=== PATIENT | male | born 1995 | race American Indian/Alaskan Native ===

== ENCOUNTER 2016-12-22 06:17 | Emergency (ER) | payer SELFPAY ==
[2016-12-22] MEDS ORDERED: FUL-GLO OP ONE (08:26)
[2016-12-22] MEDS ORDERED: TETRACAINE 0.5% OU STA (08:26)
--- NOTE | 2016-12-22 09:43 | Emergency Department Report ---
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 PT states 2-3 weeks ago something got in his L eye. PT unsure what it is. PT states he can still feel something in his eye. PT states his eye hurts. PT tried to clean eye with otc eye wash but no improvement. PT states he has not been seen for this. PT not sure if his TDap is UTD. chief complaint: eye injury -: week(s) (2-3 weeks ago ) Onset Description: gradual Location: left eye Place: work If Injury: direct trauma (pt states something got in his eye ) Eye Symptoms: redness, pain, foreign body sensation, discharge (tearing ) Severity scale (0 -10): 7 If Pain, Quality: sharp Consistency: intermittent Context: trauma Associated Symptoms: none Treatments Prior to Arrival: irrigated eye - Related Data Patient Tetanus UTD: No Previous Rx's Medication Instructions Recorded Last Taken Type Cetirizine HCl [ZyrTEC] 10 mg PO DAILY #30 capsule 12/22/16 Unknown Rx Erythromycin [Erythromycin Ophth 1 cm OS QID 7 Days 12/22/16 Unknown Rx Oint] Ibuprofen [Motrin] 600 mg PO Q8H PRN #15 tablet 12/22/16 Unknown Rx Allergies Allergy/AdvReac Type Severity Reaction Status Date / Time loracarbef [From Lorabid] Allergy Rash Verified 10/06/13 15:35 ED Review of Systems ROS: Stated complaint: LT EYE REDNESS W/DISCOMFORT Other details as noted in HPI Comment: All other systems reviewed and negative Constitutional: denies: chills, fever Eyes: as per HPI, eye pain Gastrointestinal: denies: abdominal pain Musculoskeletal: denies: back pain Skin: denies: rash ED Past Medical Hx - Past Medical History Previous Medical History?: No - Surgical History Past Surgical History?: No - Social History Smoking Status: Current Every Day Smoker Substance Use Type: None - Medications Home Medications: Home Medications Medication Instructions Recorded Confirmed Last Taken Type Cetirizine HCl [ZyrTEC] 10 mg PO DAILY #30 capsule 12/22/16 Unknown Rx Erythromycin [Erythromycin Ophth 1 cm OS QID 7 Days 12/22/16 Unknown Rx Oint] Ibuprofen [Motrin] 600 mg PO Q8H PRN #15 tablet 12/22/16 Unknown Rx ED Physical Exam - General Limitations: No Limitations General appearance: alert, in no apparent distress - Head Head exam: Present: atraumatic, normocephalic, normal inspection - Eye Eye exam: Present: PERRL, EOMI, conjunctival injection (mild, L eye ), other (+ increased fluorcein uptake to L eye at the 3 oclock position on wood's lamp exam ). Absent: periorbital swelling, periorbital tenderness Pupils: Present: normal accommodation - Expanded Eye Exam Expanded Eyelids: Normal Inspection: Left Pupils: Regular, Round: Bilateral Sclera/Conjunctival: Injection: Left Visual acuity (R) = 20/: 40 Visual acuity (L) = 20/: 70 With correction: No IOP (L) in mmH IOP measured with: Tonopen - ENT ENT exam: Present: normal exam, normal external ear exam - Neck Neck exam: Present: normal inspection, full ROM - Respiratory Respiratory exam: Present: normal lung sounds bilaterally. Absent: respiratory distress - Cardiovascular Cardiovascular Exam: Present: regular rate, normal rhythm - Extremities Exam Extremities exam: Present: normal inspection, full ROM - Back Exam Back exam: Present: normal inspection, full ROM. Absent: tenderness, CVA tenderness (R), CVA tenderness (L) - Neurological Exam Neurological exam: Present: alert, oriented X3 - Psychiatric Psychiatric exam: Present: normal affect, normal mood - Skin Skin exam: Present: warm, dry, intact, normal color ED Course Vital Signs 12/22/16 12/22/16 12/22/16 06:31 08:20 11:46 Temperature 97.9 F 97.0 F L 98.5 F Pulse Rate 62 46 L 88 Respiratory 18 18 20 Rate Blood Pressure 106/69 Blood Pressure 120/77 133/78 [Left] O2 Sat by Pulse 100 100 98 Oximetry - Reevaluation(s) Reevaluation #1: 12/22/16 11:18 PT aware of abnormal PE findings and need to follow up. PT has no questions at this time. - Pulse Oximetry Interpretation Digit-Finger Initial Pulse Oximetry Readin Actions Taken: none ED Medical Decision Making - Differential Diagnosis fb, abrasion, conjunctivitis Critical Care Time: No Critical care attestation.: If time is entered above; I have spent that time in minutes in the direct care of this critically ill patient, excluding procedure time. ED Disposition Clinical Impression: Need for Tdap vaccination Corneal abrasion, left Qualifiers: Encounter type: initial encounter Qualified Code(s): S05.02XA - Injury of conjunctiva and corneal abrasion without foreign body, left eye, initial encounter Disposition: TO HOME OR SELFCARE Is pt being admited?: No Does the pt Need Aspirin: No Condition: Stable Instructions: Conjunctivitis (ED), Corneal Abrasion (ED) Additional Instructions: Follow up with an eye doctor in the next 3-5 days Return to the ED if you have trouble seeing out of your eye or worsening Prescriptions: Cetirizine HCl [ZyrTEC] 10 mg PO DAILY #30 capsule Erythromycin [Erythromycin Ophth Oint] 1 cm OS QID 7 Days Ibuprofen [Motrin] 600 mg PO Q8H PRN #15 tablet PRN Reason: Pain Referrals: PRIMARY CAREMD [Primary Care Provider] - 3-5 Days WINNIE NEWMAN MD [Staff Physician] - 3-5 Days JOSE NAYAK MD [Staff Physician] - 3-5 Days [facility] [Outside] - 3-5 Days Forms: Work/School Release Form(ED) Time of Disposition: 11:06
[2016-12-22] MEDS ORDERED: BOOSTRIX IM ONE (10:51)
[2016-12-22 11:48] VITALS: BP 133/78
== END 2016-12-22 11:37 | disposition home or self-care (01) ==
LOC: ED 06:17
DX: S05.02XA Injury of conjunctiva and corneal abrasion without foreign body, left eye, initial encounter (principal); F17.210 Nicotine dependence, cigarettes, uncomplicated; Z88.8 Allergy status to other drugs, medicaments and biological substances; X58.XXXA Exposure to other specified factors, initial encounter; Y93.89 Activity, other specified; Y92.89 Other specified places as the place of occurrence of the external cause; Y99.8 Other external cause status
CPT/HCPCS: 90471; 90715; 99283

== ENCOUNTER 2017-03-02 06:15 | Emergency (ER) | payer SELFPAY ==
[2017-03-02] MEDS ORDERED: TETRACAINE 0.5% OU ONE (10:19)
[2017-03-02] MEDS ORDERED: MOTRIN PO ONE (10:19)
[2017-03-02] MEDS ORDERED: FUL-GLO OP ONE (10:19)
--- NOTE | 2017-03-02 10:20 | Emergency Department Report ---
ED Eye Problem HPI - General Chief complaint: Eye Problems Stated complaint: EYE PAIN Time Seen by Provider: 03/02/17 09:16 Source: patient Mode of arrival: Ambulatory Limitations: No Limitations - History of Present Illness Initial comments: Here reports that he has left eye irritation that started Sunday notes in his right eye. Denies for contact. Denies any injury or trauma to her eye. Denies any foreign body gotten his eyes. He reports pain 10 out of 10 that feels burning in. Denies any loss of vision. Denies any medical problem and his tetanus vaccine is up-to-date which is less than 5 years. chief complaint: eye pain (burning ), eye redness Onset/Timin -: days(s) Onset Description: sudden, awoke with symptoms Location: both eyes Place: home If Injury: none Eye Symptoms: burning, redness, itching, discharge, photophobia Severity: severe Severity scale (0 -10): 7 If Pain, Quality: burning Consistency: intermittent Associated Symptoms: none Treatments Prior to Arrival: none - Related Data Patient Tetanus UTD: Yes Previous Rx's Medication Instructions Recorded Last Taken Type Cetirizine HCl [ZyrTEC] 10 mg PO DAILY #30 capsule 12/22/16 Unknown Rx Erythromycin [Erythromycin Ophth 1 cm OS QID 7 Days 12/22/16 Unknown Rx Oint] Gentamicin 0.3% Ophth Soln 2 drops OP Q4H #1 bottle 03/02/17 Unknown Rx Ibuprofen [Motrin 600 MG tab] 600 mg PO Q8H PRN #15 tablet 03/02/17 Unknown Rx Ketotifen Fumarate [Zaditor] 5 ml OP TID PRN #1 drops 03/02/17 Unknown Rx Allergies Allergy/AdvReac Type Severity Reaction Status Date / Time loracarbef [From Lorabid] Allergy Rash Verified 10/06/13 15:35 ED Review of Systems ROS: Stated complaint: EYE PAIN Other details as noted in HPI Comment: All other systems reviewed and negative Constitutional: no symptoms reported Eyes: eye pain (eye burning and redness), eye discharge. denies: vision change ENT: denies: ear pain, throat pain, congestion Respiratory: no symptoms reported Cardiovascular: denies: chest pain, palpitations, edema, syncope, paroxysmal nocturnal dyspnea Gastrointestinal: denies: abdominal pain, nausea, vomiting Musculoskeletal: denies: back pain, joint swelling, arthralgia, myalgia Skin: denies: rash Neurological: denies: headache, weakness, numbness, paresthesias, confusion, abnormal gait, vertigo ED Past Medical Hx - Past Medical History Previous Medical History?: No - Surgical History Past Surgical History?: No - Family History Family history: no significant - Social History Smoking Status: Current Every Day Smoker Substance Use Type: None - Medications Home Medications: Home Medications Medication Instructions Recorded Confirmed Last Taken Type Cetirizine HCl [ZyrTEC] 10 mg PO DAILY #30 capsule 12/22/16 Unknown Rx Erythromycin [Erythromycin Ophth 1 cm OS QID 7 Days 12/22/16 Unknown Rx Oint] Gentamicin 0.3% Ophth Soln 2 drops OP Q4H #1 bottle 03/02/17 Unknown Rx Ibuprofen [Motrin 600 MG tab] 600 mg PO Q8H PRN #15 tablet 03/02/17 Unknown Rx Ketotifen Fumarate [Zaditor] 5 ml OP TID PRN #1 drops 03/02/17 Unknown Rx ED Physical Exam - General Limitations: No Limitations General appearance: alert, in no apparent distress - Head Head exam: Present: atraumatic, normocephalic, normal inspection - Eye Eye exam: Present: PERRL, EOMI, conjunctival injection. Absent: normal appearance, scleral icterus, nystagmus, periorbital swelling, periorbital tenderness Pupils: Present: normal accommodation - Expanded Eye Exam Expanded Eyelids: Normal Inspection: Right (bilateral) Pupils: Regular, Round: Bilateral, Reactive: Bilateral Sclera/Conjunctival: Injection: Bilateral (erythema) Anterior chamber: Normal Inspection: Bilateral Posterior chamber: Normal Inspection: Bilateral Visual acuity (R) = 20/: 50 (20/50 both eyes) Visual acuity (L) = 20/: 50 With correction: No - ENT ENT exam: Present: normal exam, normal orophraynx, mucous membranes moist, TM's normal bilaterally, normal external ear exam - Neck Neck exam: Present: normal inspection, full ROM, other (C-spine tenderness). Absent: tenderness, meningismus, lymphadenopathy, thyromegaly - Respiratory Respiratory exam: Present: normal lung sounds bilaterally. Absent: respiratory distress, wheezes, chest wall tenderness, accessory muscle use - Cardiovascular Cardiovascular Exam: Present: regular rate, normal rhythm, normal heart sounds. Absent: systolic murmur, diastolic murmur - Extremities Exam Extremities exam: Present: normal inspection, full ROM, normal capillary refill. Absent: pedal edema, joint swelling, calf tenderness - Back Exam Back exam: Present: normal inspection, full ROM. Absent: tenderness, CVA tenderness (R), CVA tenderness (L), muscle spasm, paraspinal tenderness, vertebral tenderness, rash noted - Neurological Exam Neurological exam: Present: alert, oriented X3, normal gait, reflexes normal. Absent: motor sensory deficit - Psychiatric Psychiatric exam: Present: normal affect, normal mood - Skin Skin exam: Present: warm, dry, intact, normal color. Absent: rash ED Course Vital Signs 03/02/17 07:11 Temperature 97.8 F Pulse Rate 68 Respiratory 16 Rate Blood Pressure 109/76 O2 Sat by Pulse 100 Oximetry - Reevaluation(s) Reevaluation #1: 03/02/17 11:49 stable throughout ED stay. He received Motrin 800 mg by mouth in the emergency room for eye pain. See procedure note/intestine 03/02/17 11:49 - Procedure Description Procedures done: Bilateral eye procedure: Both eyes examined under Ho lamp, instill one drop of tetracaine eyedrop in both eyes followed by fluorescein stain and both eyes examined under Ho lamp. No corneal abrasion noted. Visual Leif acuity is 20/20 both eyes, OD and OS ED Medical Decision Making - Medical Decision Making ED course: Shoshana presented to the emergency room with irritation to both eyes that started in his left eye and now it is right eye. Physical findings for bilateral conjunctivitis. Both examined under Ho lamp and no corneal abrasion or corneal ulcer seen. Visual Acuity is 20/50 both eyes, OD and OS. Patient is given Motrin 800 mg by mouth and emergency room for eye irritation. I explained diagnosis and treatment plan to him and let him know that he will need to follow up with eye doctor in 3 days and if his condition worsened and he should come back to the emergency room. Patient discharged home with gentamicin ophthalmic drops, Zaditor gtt for itching and Motrin when necessary Critical care attestation.: If time is entered above; I have spent that time in minutes in the direct care of this critically ill patient, excluding procedure time. ED Disposition Clinical Impression: Irritation of both eyes Bilateral conjunctivitis Qualifiers: Conjunctivitis type: acute Acute conjunctivitis type: unspecified Qualified Code(s): H10.33 - Unspecified acute conjunctivitis, bilateral Disposition: DC-01 TO HOME OR SELFCARE Is pt being admited?: No Does the pt Need Aspirin: No Condition: Stable Instructions: Conjunctivitis (ED) Additional Instructions: Please follow up with manager of quality as instructed Take medication as prescribed Increase your fluid intake Practice good hand hygiene Prescriptions: Gentamicin 0.3% Ophth Soln 2 drops OP Q4H #1 bottle Ibuprofen [Motrin 600 MG tab] 600 mg PO Q8H PRN #15 tablet PRN Reason: Pain Ketotifen Fumarate [Zaditor] 5 ml OP TID PRN #1 drops PRN Reason: Allergy Symptoms Referrals: MEME MCDANIEL MD [Staff Physician] - 03/05/17 Forms: Work/School Release Form(ED)
[2017-03-02 12:28] VITALS: BP 109/59
== END 2017-03-02 12:28 | disposition home or self-care (01) ==
LOC: ED 06:15
DX: H10.9 Unspecified conjunctivitis (principal); F17.210 Nicotine dependence, cigarettes, uncomplicated; Z88.8 Allergy status to other drugs, medicaments and biological substances
CPT/HCPCS: 99283

== ENCOUNTER 2020-06-13 14:06 | Emergency (ER) | payer SELFPAY ==
[2020-06-13 14:13] VITALS: BP 109/64
--- NOTE | 2020-06-13 14:24 | Emergency Department Report ---
Chief Complaint: Urogenital-Male Stated Complaint: SEVERE GENITAL PAIN - HPI History of Present Illness: 25-year-old -[place] male presents to the emergency room reporting a 1- 1/2 days of penile painfulness. Patient reports he has had unprotected intercourse and the possible concern for STI. Patient states that his partner reports that she had like a yeast infection but has been drinking water and and that has improved. Patient denies any testicular pain denies abdominal pain denies any nausea no vomiting no diarrhea. Patient states that is painful when he urinates. - Exam Vital Signs: Vital Signs 06/13/20 14:08 Temperature 98.6 F Pulse Rate 76 Respiratory 18 Rate Blood Pressure 109/64 O2 Sat by Pulse 100 Oximetry Physical Exam: Alert and oriented x3 no acute distress nontoxic in appearance : Chaperoned by nurse Yannick: Circumcised penis mild discharge at the penis orifice no testicular pain or tenderness bilateral lymphadenopathy in the groin area Ambulatory without difficulties MSE screening note: Focused history and physical exam performed. Due to findings the following was ordered: 25-year-old -[place] male presents to the emergency room reporting a 1- 1/2 days of penile painfulness. Patient reports he has had unprotected intercourse and the possible concern for STI. Patient states that his partner reports that she had like a yeast infection but has been drinking water and and that has improved. Patient denies any testicular pain denies abdominal pain denies any nausea no vomiting no diarrhea. Patient states that is painful when he urinates. Referred patient to try taking ibuprofen or Tylenol and to follow-up at the health department urgent care [facility] for evaluation and treatment. ED Disposition for [facility] Disposition: MED SCREENING EXAM-LEFT Is pt being admited?: No Does the pt Need Aspirin: No Condition: Stable Additional Instructions: Recommend to follow-up at the health department or urgent care for STI evaluation and treatment. Need to be checked for HIV, gonorrhea chlamydia herpes hepatitis syphilis. You can take Tylenol or ibuprofen for pain management. Referrals: [facility] [Outside] - 3-5 Days [facility] [Outside] - 3-5 Days Clinical, medical concept [Other] - 3-5 Days
== END 2020-06-13 14:36 | disposition left against medical advice (07) ==
LOC: ED 14:06
DX: N50.89 Other specified disorders of the male genital organs (principal); Z53.21 Procedure and treatment not carried out due to patient leaving prior to being seen by health care provider

== ENCOUNTER 2021-11-09 09:24 | Emergency (ER) | payer SELFPAY ==
[2021-11-09 09:36] VITALS: BP 120/64
== END 2021-11-09 17:45 | disposition left against medical advice (07) ==
LOC: ED 09:24
DX: R22.1 Localized swelling, mass and lump, neck (principal); Z53.21 Procedure and treatment not carried out due to patient leaving prior to being seen by health care provider

== ENCOUNTER 2021-11-15 09:55 | Emergency (ER) | payer SELFPAY ==
[2021-11-15 10:38] VITALS: BP 107/62
--- NOTE | 2021-11-15 11:09 | XRay Report ---
CHEST 2 VIEWS INDICATION / CLINICAL INFORMATION: cough. COMPARISON: None available. FINDINGS: SUPPORT DEVICES: None. HEART / MEDIASTINUM: No significant abnormality. LUNGS / PLEURA: No significant pulmonary or pleural abnormality. No pneumothorax. ADDITIONAL FINDINGS: No significant additional findings. IMPRESSION: 1. No acute findings. Signer Name: Shelton Garcia DO Signed: 11/15/2021 11:05 AM Workstation Name: [id number]
--- NOTE | 2021-11-15 13:14 | Emergency Department Report ---
ED General Adult HPI - General Chief complaint: Upper Respiratory Infection Stated complaint: CANNOT SWALLOW Source: patient Mode of arrival: Ambulatory Limitations: No Limitations - History of Present Illness Initial comments: Patient is a 26-year-old -[place] male with no past medical history presents to the ED with complaint of acute onset persistent sore throat with swollen painful anterior right cervical lymph nodes for the last 2 weeks. Patient states that the symptoms are worse with any swallowing or speech. Patient denies traumatic injury, fever, chills, cough, sore throat, headache, chest pain or shortness of breath, nausea and vomiting, abdominal pain, neck pain or change in vision. MD Complaint: Sore throat -: week(s) (2) Location: mouth Radiation: non-radiation Severity scale (0 -10): 7 Quality: aching, sharp Consistency: constant Improves with: none Worsens with: eating Associated Symptoms: denies other symptoms. denies: confusion, chest pain, cough, diaphoresis, fever/chills, headaches, loss of appetite, malaise, nausea/vomiting, rash, seizure, shortness of breath, syncope, weakness Treatments Prior to Arrival: none - Related Data Previous Rx's Medication Instructions Recorded Last Taken Type Cetirizine HCl [ZyrTEC] 10 mg PO DAILY #30 capsule 12/22/16 Unknown Rx Erythromycin [Erythromycin Ophth 1 cm OS QID 7 Days tube 12/22/16 Unknown Rx Oint] Gentamicin 0.3% Ophth Soln 2 drops OP Q4H #1 bottle 03/02/17 Unknown Rx Ketotifen Fumarate [Zaditor] 5 ml OP TID PRN #1 drops 03/02/17 Unknown Rx Ibuprofen [Motrin 600 MG tab] 600 mg PO Q8H PRN #12 tablet 04/09/18 Unknown Rx Azithromycin [Zithromax Z-JARETH] 250 mg PO DAILY #6 tab 11/15/21 Unknown Rx Ibuprofen [Motrin 600 MG tab] 600 mg PO Q8H PRN #30 tablet 11/15/21 Unknown Rx Lidocaine Viscous 2% 10 ml PO Q6H PRN #120 ml 11/15/21 Unknown Rx predniSONE [Deltasone] 40 mg PO QDAY #10 tab 11/15/21 Unknown Rx Allergies Allergy/AdvReac Type Severity Reaction Status Date / Time loracarbef [From Lorabid] Allergy Intermediate Rash Verified 11/09/21 09:37 ED Review of Systems ROS: Stated complaint: CANNOT SWALLOW Other details as noted in HPI ED Past Medical Hx - Past Medical History Previous Medical History?: No - Surgical History Past Surgical History?: No - Social History Smoking Status: Never Smoker - Medications Home Medications: Home Medications Medication Instructions Recorded Confirmed Last Taken Type Cetirizine HCl [ZyrTEC] 10 mg PO DAILY #30 capsule 12/22/16 Unknown Rx Erythromycin [Erythromycin Ophth 1 cm OS QID 7 Days tube 12/22/16 Unknown Rx Oint] Gentamicin 0.3% Ophth Soln 2 drops OP Q4H #1 bottle 03/02/17 Unknown Rx Ketotifen Fumarate [Zaditor] 5 ml OP TID PRN #1 drops 03/02/17 Unknown Rx Ibuprofen [Motrin 600 MG tab] 600 mg PO Q8H PRN #12 tablet 04/09/18 Unknown Rx Azithromycin [Zithromax Z-JARETH] 250 mg PO DAILY #6 tab 11/15/21 Unknown Rx Ibuprofen [Motrin 600 MG tab] 600 mg PO Q8H PRN #30 tablet 11/15/21 Unknown Rx Lidocaine Viscous 2% 10 ml PO Q6H PRN #120 ml 11/15/21 Unknown Rx predniSONE [Deltasone] 40 mg PO QDAY #10 tab 11/15/21 Unknown Rx ED Physical Exam - General Limitations: No Limitations ED Course Vital Signs 11/15/21 11/15/21 10:35 12:29 Temperature 98.4 F Pulse Rate 63 Respiratory 17 17 Rate Blood Pressure 107/62 O2 Sat by Pulse 96 97 Oximetry ED Medical Decision Making - Medical Decision Making This is a 26-year-old -[place] male with no past medical history presents to the ED with complaint of acute onset persistent sore throat with swollen painful anterior right cervical lymph nodes for the last 2 weeks. Patient states that the symptoms are worse with any swallowing or speech. In the ED, patient is alert and oriented x3 and is not in any distress. Patient is hemodynamically stable. Patient will discharge home on medications based on the history and physical exam findings. Patient was discharged home and advised to follow-up with his primary care physician in 7 to 10 days for reevaluation or return to the ED immediately if symptoms get worse. - Differential Diagnosis Strep pharyngitis; tonsillitis; cervical lymphadenopathy; URI; Critical care attestation.: If time is entered above; I have spent that time in minutes in the direct care of this critically ill patient, excluding procedure time. ED Disposition Clinical Impression: Acute bacterial pharyngitis, Anterior cervical lymphadenopathy Disposition: HOME / SELF CARE / HOMELESS Is pt being admited?: No Does the pt Need Aspirin: No Condition: Stable Instructions: Pharyngitis, [id number], Lymphadenopathy Additional Instructions: Take medication with food, drink plenty of fluids and follow-up with your primary care physician in 7 to 10 days for reevaluation. Return to the ED immediately if symptoms get worse. Prescriptions: predniSONE [Deltasone] 40 mg PO QDAY #10 tab Lidocaine Viscous 2% 10 ml PO Q6H PRN #120 ml PRN Reason: Sore Throat Ibuprofen [Motrin 600 MG tab] 600 mg PO Q8H PRN #30 tablet PRN Reason: Pain Azithromycin [Zithromax Z-JARETH] 250 mg PO DAILY #6 tab Referrals: NASIR CARVAJLA MD [Primary Care Provider] - 3-5 Days Forms: Work/School Release Form(ED) Time of Disposition: 13:10 Print Language: LUXEMBOURGISH
== END 2021-11-15 13:34 | disposition home or self-care (01) ==
LOC: ED 09:55
DX: J02.8 Acute pharyngitis due to other specified organisms (principal); B96.89 Other specified bacterial agents as the cause of diseases classified elsewhere; R59.1 Generalized enlarged lymph nodes; Z88.8 Allergy status to other drugs, medicaments and biological substances; Z79.899 Other long term (current) drug therapy
CPT/HCPCS: 71046; 99283

== ENCOUNTER 2022-02-01 13:41 | Emergency (ER) | payer SELFPAY | END 2022-02-01 18:51 | disposition left against medical advice (07) | LOC: ED 13:41 | DX: Z00.00 Encounter for general adult medical examination without abnormal findings (principal); Z53.21 Procedure and treatment not carried out due to patient leaving prior to being seen by health care provider ==

== ENCOUNTER 2022-02-09 11:29 | Emergency (ER) | payer SELFPAY ==
[2022-02-09 12:04] VITALS: BP 119/70
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
[2022-02-09] MEDS ORDERED: IBUPROFEN 800 MG TAB PO ONE (13:10)
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
[2022-02-09 13:28] LABS: Bilirubin,Urine NEG (Negative); Blood,Urine NEG (Negative); Color,Urine Yellow (Yellow); Protein,Urine <15 mg/dL mg/dL (Negative)
[2022-02-09 13:36] LABS: Mucus,Urine 1+ /HPF; Urobilinogen,Urine < 2 mg/dL (<2.0)
[2022-02-09 13:47] LABS: RBC,Urine < 1.0 /HPF (0.0-6.0)
[2022-02-09] MEDS ORDERED: LIDOCAINE-MPF (1%) 10 MG/1 ML VIAL 5 ML INFILTRATI ONE (14:03)
== END 2022-02-09 14:22 | disposition home or self-care (01) ==
LOC: ED 11:29
DX: M79.672 Pain in left foot (principal); Z20.2 Contact with and (suspected) exposure to infections with a predominantly sexual mode of transmission
CPT/HCPCS: 73630; 81001; 96372; 99283; J0696; J3490